=== PATIENT | female | born 1930 | race Caucasian/White ===

== ENCOUNTER 2018-06-17 21:20 | Inpatient (IN) | payer MEDICARE, BC ==
[~2018-06-17] VITALS: Ht 170.2 cm; Wt 53.8 kg
[2018-06-17] MEDS ORDERED: ASPIRIN 81 MG TABLET CHEW PO ONE (21:30)
[2018-06-17] MEDS ORDERED: PLEASE ENTER HEIGHT AND WEIGHT AND ALLERGIES MC SCH (21:30)
[2018-06-17] MEDS ORDERED: ASPIRIN 81 MG TABLET CHEW ONE (21:57)
[2018-06-17 22:01] LABS: MEAN CORPUSCULAR HEMOGLOBIN 27.9 pg (27.0-34.8); MEAN CORPUSCULAR VOLUME 84.5 fL (80-100); MEAN PLATELET VOLUME 7.3 fL (7.4-10.4); PLATELET COUNT 336 x10^3/uL (130-400); RED BLOOD COUNT 4.71 x10^6/uL (3.82-5.3); RED CELL DISTRIBUTION WIDTH 14.3 % (9.6-15.2)
[2018-06-17 22:13] LABS: ALANINE AMINOTRANSFERASE 214 U/L (12-78); ALBUMIN 3.6 g/dL (3.4-5.0); ANION GAP 10 mmol/L (5-15); CALCIUM 8.6 mg/dL (8.5-10.1); CHLORIDE 107 mmol/L (98-107); CREATININE 1.18 mg/dL (0.55-1.02)
[2018-06-17 22:17] LABS: ALKALINE PHOSPHATASE 242 U/L (45-117); BILIRUBIN,TOTAL 0.7 mg/dL (0.2-1.0); TOTAL PROTEIN 7.3 g/dL (6.4-8.2); TROPONIN I < 0.015 ng/mL (0.000-0.045)
[2018-06-17] MEDS ORDERED: CEFTRIAXONE PMX 1GM/50ML 50 ML ONE (22:29)
[2018-06-17] MEDS ORDERED: CEFTRIAXONE PMX 1GM/50ML 50 ML IV ONE (22:30)
[2018-06-17 22:31] LABS: MD YES
[2018-06-17 22:35] LABS: <RBC MORPHOLOGY> NORMAL; BAND#(MANUAL) 1.59 x10^3/uL; BANDS%(MANUAL) 9 % (0-7); EOS#(MANUAL) 0.35 x10^3/uL (0.0-0.4); EOS% (MANUAL) 2 % (1-7); LYMPH#(MANUAL) 1.06 x10^3/uL (1-3.4); LYMPHS% (MANUAL) 6 % (22-44); SEG#(MANUAL) 14.69 x10^3/uL (1.8-6.8); SEGS% (MANUAL) 83 % (42-75)
[2018-06-17 22:36] LABS: <PLATELET ESTIMATE> ADEQUATE; SMALL PLATELETS 1+
[2018-06-17] MEDS ORDERED: OMNIPAQUE 350 MG/ML, 100ML BOTTLE ONE (23:06)
[2018-06-17] MEDS ORDERED: CITA10TA8 PO (23:57)
[2018-06-17] MEDS ORDERED: ASPI-496 PO (23:57)
[2018-06-17] MEDS ORDERED: VERA40TA PO (23:57)
[2018-06-17] MEDS ORDERED: SIMV5TAB5 PO (23:57)
[2018-06-18] MEDS ORDERED: AZITHROMYCIN 500 MG in SODIUM CHLORIDE 0.9% 250 ML IV ONE
[2018-06-18] MEDS ORDERED: ONDANSETRON ODT 4 MG PO PRN (00:30)
[2018-06-18] MEDS ORDERED: hydrALAzine 20 MG/ML, 1ML IVPush PRN (00:30)
[2018-06-18] MEDS ORDERED: ACETAMINOPHEN 325 MG TABLET PO PRN (00:30)
[2018-06-18] MEDS ORDERED: DOCUSATE 100 MG CAPSULE PO PRN (00:30)
[2018-06-18] MEDS ORDERED: TEMAZEPAM 15 MG CAPSULE PO PRN (00:30)
[2018-06-18] MEDS ORDERED: ALBUTEROL SULFATE 2.5 MG/3 ML NPPB PRN (01:00)
[2018-06-18 01:29] VITALS: BP 100/59
[2018-06-18 01:30] VITALS: BP 100/59
[2018-06-18 07:03] VITALS: BP 118/73
[2018-06-18] MEDS: GUAIFENESIN 200 MG TABLET PO SCH ×2 (09:03→20:22)
[2018-06-18] MEDS ORDERED: OMEP20CA14 PO (09:20)
[2018-06-18] MEDS ORDERED: LEVO50TA5 PO (09:24)
[2018-06-18] MEDS ORDERED: FLUT1AER3 INH (09:25)
[2018-06-18] MEDS ORDERED: ALEN70TA5 PO (09:26)
[2018-06-18] MEDS: CITALOPRAM 20 MG TABLET PO SCH (10:31)
[2018-06-18] MEDS: ASPIRIN 81 MG TABLET CHEW PO SCH (10:31)
[2018-06-18] MEDS: OMEPRAZOLE 20 MG CAPSULE.DR PO SCH (10:31)
[2018-06-18] MEDS ORDERED: AZITHROMYCIN 500 MG in SODIUM CHLORIDE 0.9% 250 ML IV SCH (12:30)
[2018-06-18] MEDS: CEFTRIAXONE PMX 1GM/50ML 50 ML IV SCH (12:32)
[2018-06-18] MEDS: VERAPAMIL ER 120MG TABLET.ER PO SCH (13:17)
[2018-06-18 15:14] VITALS: BP 100/64
[2018-06-18 20:16] VITALS: BP 110/67
[2018-06-18] MEDS ORDERED: SIMVASTATIN 20 MG TABLET PO SCH (21:00)
[2018-06-19] MEDS: CEFTRIAXONE PMX 1GM/50ML 50 ML IV SCH (00:48)
[2018-06-19 02:32] VITALS: BP 97/56
[2018-06-19] MEDS ORDERED: LEVOTHYROXINE 50 MCG TABLET PO SCH (06:00)
[2018-06-19 06:35] LABS: ALANINE AMINOTRANSFERASE 234 U/L (12-78); ALBUMIN 3.1 g/dL (3.4-5.0); ANION GAP 7 mmol/L (5-15); CHLORIDE 110 mmol/L (98-107); CREATININE 1.01 mg/dL (0.55-1.02)
[2018-06-19 06:36] LABS: BASOPHILS # (AUTO) 0.06 x10^3/uL (0-0.1); BASOPHILS % (AUTO) 1 % (0-1); EOSINOPHILS % (AUTO) 8 % (1-7); LYMPHOCYTES # (AUTO) 3.28 x10^3/uL (1-3.4); LYMPHOCYTES % (AUTO) 36 % (22-44); MD NO; MEAN CORPUSCULAR HEMOGLOBIN 28.5 pg (27.0-34.8); MEAN CORPUSCULAR HGB CONC 33.3 g/dL (32.4-35.8); MEAN CORPUSCULAR VOLUME 85.4 fL (80-100); MEAN PLATELET VOLUME 7.6 fL (7.4-10.4); MONOCYTES # (AUTO) 0.75 x10^3/uL (0.2-0.8); MONOCYTES % (AUTO) 8 % (2-9); NEUTROPHILS # (AUTO) 4.33 x10^3/uL (1.8-6.8); NEUTROPHILS % (AUTO) 48 % (42-75); PLATELET COUNT 285 x10^3/uL (130-400); RED BLOOD COUNT 4.21 x10^6/uL (3.82-5.3); RED CELL DISTRIBUTION WIDTH 14.9 % (9.6-15.2)
[2018-06-19 06:37] LABS: ALKALINE PHOSPHATASE 188 U/L (45-117); BILIRUBIN,TOTAL 0.6 mg/dL (0.2-1.0); TOTAL PROTEIN 6.5 g/dL (6.4-8.2)
[2018-06-19 07:55] VITALS: BP 133/55
[2018-06-19] MEDS: CITALOPRAM 20 MG TABLET PO SCH (09:00)
[2018-06-19] MEDS: VERAPAMIL ER 120MG TABLET.ER PO SCH (09:06)
[2018-06-19] MEDS: OMEPRAZOLE 20 MG CAPSULE.DR PO SCH (09:06)
[2018-06-19] MEDS: ASPIRIN 81 MG TABLET CHEW PO SCH (09:06)
[2018-06-19] MEDS: GUAIFENESIN 200 MG TABLET PO SCH (09:06)
[2018-06-19] MEDS ORDERED: CEFD300C37 PO (10:12)
[2018-06-19] MEDS ORDERED: GUAI200T3 PO (10:12)
[2018-06-19] MEDS ORDERED: DOXY100T10 PO (10:12)
[2018-06-19] MEDS ORDERED: ALBU2.5V NPPB (10:12)
[2018-06-24] MEDS ORDERED: ALENDRONATE 70 MG TABLET PO SCH (06:30)
[2018-06-25] MEDS ORDERED: ALENDRONATE 70 MG TABLET PO SCH (06:30)
== END 2018-06-19 12:44 | disposition home or self-care (01) | DRG 871 ==
LOC: ED 23:05 → EDIP 23:46 → 4EST 06-18 02:24 → DCLOUNGE 06-19 12:25
PROVIDERS: ADMIT Internal Medicine; ATTEND Internal Medicine
DX: A41.9 Sepsis, unspecified organism (principal); J96.21 Acute and chronic respiratory failure with hypoxia; J15.9 Unspecified bacterial pneumonia; T17.890A Other foreign object in other parts of respiratory tract causing asphyxiation, initial encounter; J44.0 Chronic obstructive pulmonary disease with (acute) lower respiratory infection; F33.0 Major depressive disorder, recurrent, mild; E78.5 Hyperlipidemia, unspecified; I10 Essential (primary) hypertension; X58.XXXA Exposure to other specified factors, initial encounter; Y93.89 Activity, other specified; Y92.89 Other specified places as the place of occurrence of the external cause; Z99.81 Dependence on supplemental oxygen; Z82.5 Family history of asthma and other chronic lower respiratory diseases
CPT/HCPCS: 36415; 71045; 71275; 76700; 80053; 83735; 83880; 84484; 85025; 85379; 86704; 86705; 86706; 86708; 86709; 86803; 87340; 93005; 96365; G0378; J0456; J0696; Q9967; J7050